=== PATIENT | male | born 1990 | race Caucasian/White ===

== ENCOUNTER → 2018-11-20 | Outpatient (CLI) | payer BC ==
--- NOTE | 2018-11-20 11:54 | Diagnostic Imaging Report ---
Left thyroid nodule fine-needle aspiration under ultrasound guidance Clinical indication: Left thyroid nodule Comparison: None. Specimen: 4 FNA samples submitted to pathology. Technique/findings: Informed consent was obtained prior to the procedure. Patient's thyroid gland was scanned and a hyperechoic 1.6 cm nodule was identified in the inferior pole of the left lobe of the thyroid. This nodule was targeted for fine-needle aspiration. The patient's skin was marked, prepped exiting, and draped in the usual sterile fashion. Local anesthesia was achieved with lidocaine 1%. Under direct ultrasound guidance a 25-gauge needles were used to aspirate the targeted thyroid nodule. A total of 4 FNA samples were obtained. Cytopathology was present and deemed the sample adequate for interpretation. The patient tolerated the procedure well. Skin injury site with stress sterile bandage. Impression: Technically successful ultrasound-guided fine-needle aspiration of a left inferior pole thyroid nodule as described above. Signed by: Quinn Tony MD on 11/20/2018 11:51 AM
== END ==
LOC: US 10:11
PROVIDERS: ATTEND Otolaryngology
DX: E04.1 Nontoxic single thyroid nodule (principal)
CPT/HCPCS: 10005; 88112; 88172; 88173

== ENCOUNTER → 2020-04-24 | Outpatient (CLI) | payer BC | LOC: US 10:05 | PROVIDERS: ATTEND Otolaryngology | DX: E04.1 Nontoxic single thyroid nodule (principal) | CPT/HCPCS: 76536 ==

== ENCOUNTER → 2021-04-23 | Outpatient (CLI) | payer BC | LOC: US 12:50 | PROVIDERS: ATTEND Otolaryngology | DX: E04.1 Nontoxic single thyroid nodule (principal) | CPT/HCPCS: 76536 ==